=== PATIENT | female | born 1990 ===

== ENCOUNTER 2024-05-14 14:59 | Inpatient (IN) | payer OTHER ==
[~2024-05-14] VITALS: Ht 162.6 cm; Wt 81.2 kg
[2024-05-14 15:09] LABS: HEMATOCRIT 36.2 % (36.0-45.00); HEMOGLOBIN 12.5 g/dL (12.0-15.00); MEAN CORPUSCULAR HEMOGLOBIN 30.9 pg (27.00-32.0); MEAN CORPUSCULAR HGB CONC 34.7 g/dl (32.0-36.0); PLATELET COUNT 378 K/uL (150-450); RED BLOOD COUNT 4.07 M/uL (4.00-6.00)
[2024-05-14 15:15] LABS: PH,URINE 5.5 (5.0-8.0); URINE APPEARANCE Clear; URINE BILIRRUBIN Negative (NEGATIVE); URINE BLOOD Negative; URINE COLOR Yellow; URINE GLUCOSE Negative (NEGATIVE); URINE LEUKOCYTE Trace; URINE NITRATE Negative; URINE PROTEIN Negative (NEGATIVE)
[2024-05-14 15:19] LABS: URINE EPITHELIAL CELLS 61.5 uL (0.0-38.8); URINE RBC 4.2 uL (0.0-20.8); URINE WBC 48.8 uL (0.0-23.2)
[2024-05-14 15:25] LABS: INR < 0.93; PARTIAL THROMBOPLASTIN TIME 24.2 SECONDS (22.0-34.0); PROTHROMBIN TIME 9.3 SECONDS (9.0-11.5)
[2024-05-14 15:39] LABS: URINE CRYSTALS FEW /HPF
[2024-05-15] MEDS ORDERED: OXYTOCIN 10 UNITS/ML VIAL ONE (12:38)
[2024-05-15] MEDS ORDERED: ERYTHROMYCIN BASE 1 GM TUBE OP ONE (12:38)
[2024-05-15] MEDS ORDERED: CEFAZOLIN SODIUM 1,000 MG VIAL ONE (12:39)
[2024-05-15] MEDS ORDERED: KETOROLAC TROMETHAMINE 60 MG VIAL IM STA (16:20)
[2024-05-15] MEDS ORDERED: ERYTHROMYCIN BASE 1 GM TUBE OP SCH (16:30)
[2024-05-15] MEDS ORDERED: PROMETHAZINE HCL 25 MG/ML AMPUL IM PRN (16:30)
[2024-05-15] MEDS ORDERED: OXYTOCIN 1,000 ML IV SCH (16:30)
[2024-05-15] MEDS ORDERED: MEPERIDINE HCL/PF 50 MG/ML VIAL IM PRN (16:30)
[2024-05-15] MEDS ORDERED: RINGERS SOLUTION,LACTATED 1,000 ML IV SCH (16:30)
[2024-05-15] MEDS ORDERED: CHLORHEXIDINE GLUCONATE 120 ML BOTTLE TOP SCH (16:30)
[2024-05-15] MEDS ORDERED: ONDANSETRON HCL 2 MG/ML VIAL ONE ×2 (17:29→17:51)
[2024-05-15] MEDS ORDERED: KETOROLAC TROMETHAMINE 60 MG VIAL IM ONE (17:51)
[2024-05-15 19:44] LABS: HEMATOCRIT 35.6 % (36.0-45.00); HEMOGLOBIN 12.3 g/dL (12.0-15.00); MEAN CELL VOLUME 88.1 fL (80.00-100.00); MEAN CORPUSCULAR HEMOGLOBIN 30.4 pg (27.00-32.0); MEAN CORPUSCULAR HGB CONC 34.4 g/dl (32.0-36.0); PLATELET COUNT 357 K/uL (150-450); RED BLOOD COUNT 4.04 M/uL (4.00-6.00); RED CELL DISTRIBUTION WIDTH 14.3 % (11.5-14.5)
[2024-05-15 21:43] LABS: ABG PH 7.281 (7.35-7.45); ABG pCO2 44.2 mmHg (35-45)
[2024-05-15 21:45] LABS: BASE EXCESS -6.2 mmol/l; BICARBONATE 20.4 mmol/l (23-25); SaO2 28.3 %; Tco2 21.7 mmol/l; o2 21 %
[2024-05-16] MEDS ORDERED: OxyCODONE HCL/APAP UD (PERCOCET) PO PRN (09:00)
[2024-05-17] MEDS ORDERED: IBUPROFEN800 MG PO (10:31)
== END 2024-05-17 15:09 | disposition home or self-care (01) | DRG 785 ==
LOC: O/R 05-15 10:37 → OB/GYN 05-15 14:28
PROVIDERS: ADMIT Obstetrics & Gynecology; ATTEND Obstetrics & Gynecology
PROC: 0UB70ZZ Excision of Bilateral Fallopian Tubes, Open Approach (ICD-10-PCS; 2024-05-15)
PROC: 4A1HXCZ Monitoring of Products of Conception, Cardiac Rate, External Approach (ICD-10-PCS; 2024-05-15)
PROC: 10D00Z1 Extraction of Products of Conception, Low, Open Approach (ICD-10-PCS; principal; 2024-05-15 13:30)
DX: O36.5930 Maternal care for other known or suspected poor fetal growth, third trimester, not applicable or unspecified (principal); O34.211 Maternal care for low transverse scar from previous cesarean delivery; Z3A.38 38 weeks gestation of pregnancy; Z37.0 Single live birth; Z30.2 Encounter for sterilization; Z20.822 Contact with and (suspected) exposure to COVID-19